=== PATIENT | female | born 1990 | race Two or more races ===

== ENCOUNTER → 2020-05-31 09:43 | Outpatient (BNVA) | payer MEDICAID, SELFPAY | PROVIDERS: Visit Provider Advanced Practice Midwife | DX: Z76.89 Persons encountering health services in other specified circumstances (principal) ==

== ENCOUNTER 2020-05-31 14:09 | Outpatient (REF) | payer MEDICAID, SELFPAY ==
[2020-05-31 18:23] LABS: CT PCR NOT DETECTED (Not Detect.); NG PCR NOT DETECTED (Not Detect.)
[2020-06-01 10:33] LABS: BV Int Neg Control Negative (Negative); BV Int Pos Control Positive (Positive)
== END 2020-05-31 14:10 | disposition home or self-care (01) ==
LOC: HO.LNP 14:09
PROVIDERS: Visit Provider Advanced Practice Midwife
DX: R10.9 Unspecified abdominal pain (principal)
CPT/HCPCS: 87480; 87491; 87510; 87591; 87660

== ENCOUNTER 2022-05-22 10:40 | Outpatient (REF) | payer MEDICAID, SELFPAY ==
--- NOTE | ~2022-05-22 | MM_ITS ---
EXAMINATION: MM DIAGNOSTIC DIGITAL BREAST TOMOSYNTHESIS, BILATERAL US TARGETED BREAST ULTRASOUND, LEFT CLINICAL INFORMATION: Left probable abnormality axilla. The lifetime risk of breast cancer based on the Tyrer-Cuzick Model is 11.4%. COMPARISON: Mammography: None. TECHNIQUE: Digital breast tomosynthesis is performed in both the craniocaudal and mediolateral oblique views along with computer-aided detection (CAD). Synthesized 2-D images are generated from the tomosynthesis. Targeted left breast ultrasound to palpable abnormality. FINDINGS: The breasts are extremely dense, which lowers the sensitivity of mammography (ACR BI-RADS breast composition Category d). There are no significant masses, abnormal calcifications, or other abnormalities. Targeted ultrasound evaluation to palpable abnormality did not demonstrate any abnormal cystic or solid masses. No region of abnormal distal sound shadowing identified. No edematous change within the parenchyma. Results are discussed with the patient at time of visit. MM/MM tomosynthesis diagnostic BI IMPRESSION: No mammographic evidence of malignancy. Clinical followup suggested. ASSESSMENT: BI-RADS 1: Negative. RECOMMENDATION: Routine annual screening at 40 years old. Clinical followup for palpable abnormality.
== END 2022-05-22 10:41 | disposition home or self-care (01) ==
LOC: HO.MAMMO 10:40
PROVIDERS: PCP Registered Nurse; Visit Provider Registered Nurse
DX: N63.32 Unspecified lump in axillary tail of the left breast (principal)
CPT/HCPCS: 76642; 77062; 77066

== ENCOUNTER 2023-04-20 18:55 | Outpatient (REF) | payer MEDICAID, SELFPAY ==
[2023-04-23 04:54] LABS: HPV mRNA E6/E7 rflx Not Detected (Not Detected)
== END 2023-04-20 18:56 | disposition home or self-care (01) ==
LOC: HO.HHCLNP 18:55
PROVIDERS: Visit Provider Advanced Practice Midwife
DX: Z12.4 Encounter for screening for malignant neoplasm of cervix (principal); Z11.51 Encounter for screening for human papillomavirus (HPV)
CPT/HCPCS: 87624; 88142

== ENCOUNTER 2023-06-23 10:26 | Outpatient (REF) | payer MEDICAID, SELFPAY | END 2023-06-23 10:27 | disposition home or self-care (01) | LOC: HO.HHCL 10:26 | PROVIDERS: Visit Provider Registered Nurse | DX: Z13.89 Encounter for screening for other disorder (principal) | CPT/HCPCS: 36415; 86735; 86762; 86765 ==

== ENCOUNTER 2023-06-29 09:02 | Outpatient (REF) | payer MEDICAID, SELFPAY ==
[2023-06-30 06:23] LABS: Rubella IgG Antibody 6.82 Index
== END 2023-06-29 09:03 | disposition home or self-care (01) ==
LOC: HO.HHCL 09:02
PROVIDERS: Visit Provider Registered Nurse
DX: Z01.84 Encounter for antibody response examination (principal); Z78.9 Other specified health status
CPT/HCPCS: 36415; 86735; 86762; 86765

== ENCOUNTER 2024-12-10 14:17 | Outpatient (REF) | payer MEDICAID, SELFPAY ==
--- OUTSIDE RECORDS SUMMARY | 2024-12-10 14:20 | XMS_ITS | Encounter Summary ---
Author Organization [employer] Address [address] [place] [address] Care Team Providers Care Education Administrator Name Role Phone [facility] Primary Care Provider [phone] Reason for Visit * Reason Comments Pre-visit Planning (Unable to reach for PVP screening, LVM) Encounter Details Date Type Department Care Team ([facility] st Contact Info) Description 12/07/2024 Patient Outreach [facility] [address] [place], [place] [phone] [facility] [address] [place], [place] [phone] Pre-visit Planning ((Unable to reach for PVP screening, LVM)) Social History Tobacco Use Types Packs/Day Years Used Date Smoking Tobacco: Never Smokeless Tobacco: Never Alcohol Use Standard Drinks/Week Comments Never 0 (1 standard drink = 0.6 oz pur e alcohol) Depression Answer Date Recorded Patient Health Questionnaire-9 Score 0 02/05/2023 Housing Stability Answer Date Recorded What is your housing situation today? I have jensenjose ledbetter 05/27/[address] you li ve. Do you have problems with any of the following? None of the above 05/27/2023 Food Insecurity Answer Date Recorded Within the past 12 months, y ou worried that your food would run out before you got money to buy more: Never True 05/27/2023 Within the past 12 months,th e food you bought just didn't last and you didn't have enough money to get more: Never True Transportation Answer Date Recorded In the past 12 months, has l ack of transportation kept you from medical appts, meetings, work or from getting things needed for daily living? No 05/27/2023 Utilities Answer Date Recorded In the past 12 months, has t he electric, gas, oil or water company threatened to shut off services in your home? No 05/27/2023 Depression Answer Date Recorded Patient Health Questionnaire-2 Score 0 02/05/2023 Comments No Sex and Gender Information Value Date Recorded Sex Assigned at Female 06/02/2022 10:37 AM EDT Legal Sex Female 10:37 AM EDT Gender Identity Female 06/02/2022 10:37 AM EDT Sexual Orientation Straight 06/02/2022 10 :37 AM EDT documented as of this encounter Progress Notes * Solange Bryan - 12/07/2024 2:20 PM EDT CC Solange. Placed outbound call to patient to complete pre-visit planning. No answer at this time. Patient name and were not confirmed. CC left voicemail requesting return call. Direct contact information provided. documented in this encounter Plan of Treatment Upcoming Encounters Date Type Department Care Team (Late st Contact Info) Description 12/15/2024 2:45 PM EDT Office Visit [facility] [address] [place] [address] Annalee Sanon MD [address] [place] [address] documented as of this encounter Visit Diagnoses Not on filedocumented in this encounter Additional Health Concerns Assessment Noted Time PHQ-9 Depression Total Score: 0 02/06/20 23 10:01 AM EDT documented as of this encounter Care Teams Education Administrator Relationship Specialty Start Date End Date America Kenney FNP [address] [place] [id number] PCP - General Family Medicine 04/02/22 documented as of this encounter
--- OUTSIDE RECORDS SUMMARY | 2024-12-10 14:20 | XMS_ITS | Clinical Summary ---
Author Organization [facility] Address [address] [place] [address] Care Team Providers Care Geologic Technician Name Role Phone Unavailable Primary Care Provider Unavailabl e Social History Tobacco Use Types Packs/Day Years Used Date Smoking Tobacco: Never Assessed Comments Unknown Sex and Gender Information Value Date Recorded Sex Assigned at Not on file Legal Sex Female 8:29 PM EST Gender Identity Not on file Sexual Orientation Not on file Plan of Treatment Health Maintenance Due Date Last Done Comments DTaP,Tdap,and Td Vaccines (1 - Tdap) 2009 Hepatitis B Vaccines (1 of 3 - 19+ 3-dose series) 2009 Cervical Cancer Screening: P ap Smear 2011 Depression Screening 08/28/2023 HIV Screening 08/28/2023 Hepatitis C Screening 08/28/2023 Social Influencers of Health Screening 08/28/2023 COVID-19 Vaccine (2023-2 5 season) 2024 Influenza Vaccine (Season Ended) 2025 HIB Vaccines Aged Out No longer eligi ble based on patient's age to complete this topic HPV Vaccines Aged Out No longer eligi ble based on patient's age to complete this topic Hepatitis A Vaccines Aged Out No long er eligible based on patient's age to complete this topic IPV Vaccines Aged Out No longer eligi ble based on patient's age to complete this topic MMR Vaccines Aged Out No longer eligi ble based on patient's age to complete this topic Meningococcal ACWY Vaccine Aged Out N o longer eligible based on patient's age to complete this topic Meningococcal B Vaccine Aged Out No l onger eligible based on patient's age to complete this topic Pneumococcal Vaccine: Pediat rics (0 to 5 Years) and At-Risk Patients (6 to 64 Years) Aged Out No longer eligible b ased on patient's age to complete this topic RSV Immunization Patients Un vivian 20 months Aged Out No longer eligible b ased on patient's age to complete this topic Varicella Vaccines Aged Out No longer eligible based on patient's age to complete this topic
--- OUTSIDE RECORDS SUMMARY | 2024-12-10 14:20 | XMS_ITS | Clinical Summary ---
Author Organization [employer] Address [address] 7[address] [place] [address] Care Team Providers Care Client Service Manager Name Role Phone America Kenney Primary Care Provider [phone] Allergies No known active allergies Medications valACYclovir (Valtrex) 1 g tabletIndications :Herpes zoster without complication Take 1 tablet (1,000 mg) by mouth 3 times daily for 7 days. 21 tablet 12/10/2024 12/18/19 25 Active Active Problems Problem Noted Date Diagnosed Date Acute cystitis with hematuria 10/20/2022 Assessment & Plan (10/20/2022 1:20 PM EDT): RO kidney stones. Filter urine with a paper towel. Increase water/cranberry juice intake Amoxicillin x 7d Check urine if menstrual delay. Encounters Date Type Department Care Team Description 12/10/2024 11:00 AM EDT Office Visit [facility] [address] [place] [address] Fernie Reynolds MD Herpes zoster without complication (Primary Dx) 12/10/2024 Travel 12/09/2024 Telephone [facility] [address] [place] [address] America Kenney FNP Nurse Triage 12/07/2024 Patient Outreach [address] [address] America Kenney FNP Pre-visit Planning ((Unable to reach for PVP screening, LVM)) 10/26/2024 Telephone [facility] [address] [place] [address] [place], [place], [employer] Lab Orders 10/14/2024 Population Health Risk Score [facility] () Department [address] [place] [phone] Provider, Population Health Generic from Last 3 Months Social History Tobacco Use Types Packs/Day Years Used Date Smoking Tobacco: Never Smokeless Tobacco: Never Tobacco Cessation:Counseling Given: Not Answered Alcohol Use Standard Drinks/Week Comments Never 0 (1 standard drink = 0.6 oz pur e alcohol) Depression Answer Date Recorded Patient Health Questionnaire-9 Score 0 02/05/2023 Housing Stability Answer Date Recorded What is your housing situation today? I have jensen ledbetter 05/27/[address] you [...] Orientation Straight 06/02/2022 10 :37 AM EDT Last Filed Vital Signs Vital Sign Reading Time Taken Comments Blood Pressure 121/70 12/10/2024 10:49 AM EDT Pulse 78 12/10/2024 10:49 AM EDT Temperature 36.6 ??C (97.8 ??F) 12/10/2024 10:49 AM E DT Respiratory Rate 18 12/10/2024 10:49 AM EDT Oxygen Saturation 100% 12/10/2024 10:49 AM EDT Inhaled Oxygen Concentration - - Weight 54.4 kg (120 lb) 12/10/2024 10:49 AM EDT Height 160 cm (5' 3 ) 05/27/2023 1:48 PM EDT Body Mass Index 21.26 05/27/2023 1:48 PM EDT Plan of Treatment Upcoming Encounters Date Type Department Care Team (Late st Contact Info) Description 12/15/2024 2:45 PM EDT Office Visit [facility] [address] [place], [place] [phone] Annalee Sanon MD [address] [place], [place] [phone] Health Maintenance Due Date Last Done Comments HIV Screening 1990 Alcohol/Substance Use Screening 2002 Family Planning (PISQ) 2005 Hepatitis C Screening 2008 Hepatitis B Vaccines (1 of 3 - 19+ 3-dose series) 2009 Depression Screening 02/06/2024 02/05/2023, 02/05/2023 SDOH Screening 02/06/2024 02/05/2023 COVID-19 Vaccine (3 - 2023-2 5 season) 2024 12/20/2020, 11/29/2020 Influenza Vaccine (#1) 2024 05/29/2022 Tobacco Screening 05/27/2024 05/27/2023 DTaP/Tdap/Td Vaccines (2 - T d or Tdap) 09/11/2025 09/11/2015 Pap Smear 04/20/2026 04/20/2023 Cervical Cancer Screening 04/20/2028 HPV/Cotest 04/20/2028 04/20/2023 Zoster Vaccines (1 of 2) 2040 RSV Patients and Patients Aged 60 years or older (1 - 1-dose 75+ series) 2065 HIB Vaccines Aged Out No longer eligi [...] patient's age to complete this topic Meningococcal Vaccine Aged Out No lai chitra eligible based on patient's age to complete this topic Pneumococcal Vaccine: Pediatrics (0 to 5 Years) and At-Risk Patients (6 to 49) Years) Aged Out No longer eligible b ased on patient's age to complete this topic RSV under 20 months Aged Out No longe r eligible based on patient's age to complete this topic Rotavirus Vaccines Aged Out No longer eligible based on patient's age to complete this topic Procedures Procedure Name Priority Date/Time Associated Diagnosis Comments HPV MRNA E6/E7 REFLEX TO HPV 16, 18/45 Routine 04/20/2023 10:54 AM EDT PAP SMEAR Routine 04/20/2023 10:54 AM EDT from Last 3 Months or Most Recently Relevant to Health Maintenance Results * HPV mRNA E6/E7 w/Reflex to HPV Genotypes 16, 18/45 (04/20/2023 10:54 AM EDT) HPV nRNA E6/E7 Not Detected Not Detected [facility] Comment:Methodology: Transcr iption-Mediated AmplificationThis assay detects E6/E7 viral messenger RNA (mRNA) from 14high-risk HPV types (16,18,31,33,35,39,45,51,52,56,58,59,66,68).Cervical sources are required for HPV testing.If a vaginal source from a patient who has had atotal hysterectomy with removal of cervix wassubmitted, please contact the testing laboratoryfor alternative testing options.For additional information, please refer [email or web address](This link if provided for information/educational purposes only.)THIS TEST WAS PERFORMED AT:[facility] [place] [phone] GOODMAN MD HPV mRNA E6/E7 [facility] HPV 16 RNA [facility] HPV 18/45 RNA [facility] 04/20/2023 10:5 4 AM EDT 04/21/2023 8:45 AM EDT Priscila Hall CNM LAB CYTOLOGY ORDERABLES F inal Result [facility] [address] [place] [address] [phone] * Pap Smear (04/20/2023 10:54 AM EDT) 04/20/2023 10:5 4 AM EDT 04/21/2023 8:45 AM EDT Narrative [facility] - 04/28/2023 2:01 PM EDT ----- ------- Name: Dharmesh Justin ?Age/Sex: 33/F ? : 1990 Unit#: [id number] ?? Attend Dr: PRISCILA HALL CNM ?Re04/20/23 ?Status: DEP REF ? Location: [facility] ? Disch: ? ----- ------- SPEC : [id number] ?RECD: 04/21/23 ? STATUS: ??SOUT ? REQ NUM: [id number] ? MADELINE: 04/20/23 ? SUBM DR: PRISCILA HALL CNZonia ? ENTERED: ??04/21/23 ?SP TYPE: Pap Smr ?OTHR DR: ? ORDERED: ??Pap Smear ? Interpretation ?? Satisfactory for evaluation. ?? Negative for intraepithelial lesion or malignancy. ? HPV mRNA E6/E7: ?NOT DETECTED ? This assay detects E6/E7 viral messenger RNA (mRNA) from 14 high-risk HPV types (16, 18, ?? 31, 33, 35, 39, 45, 51, 52, 56, 58, 59, 66, 68) ? HPV testing performed by [facility], [place], [place]. ??See reference laboratory ?? portion of the EMR for entire report. ?Clinical Information LMP: Unknown date Previous PAP test: Unknown date/findings ? Material Received ?? ThinPrep-Cervical ----- ------- Signed (signature on file) Rakel Valencia 04/28/23 1401 ? ----- ------- ? END OF REPORT ? Priscila Hall [facility] CYTOLOGY ORDERABLES F inal Result [facility] [address] [place] [phone] from Last 3 Months or Most Recently Relevant to Health Maintenance Insurance C3 Care Teams Client Service Manager Relationship Specialty Start Date End Date America Kenney FNP [address] [place] [phone] PCP - General Family Medicine 04/02/22
--- OUTSIDE RECORDS SUMMARY | 2024-12-10 14:20 | XMS_ITS | Encounter Summary ---
Author Organization [employer] Address [address] [place] [address] Care Team Providers Care Debone Processing Supervisor Name Role Phone [place] [facility] Primary Care Provider [phone] Reason for Visit * Reason Onset Date Comments Nurse Triage 12/09/2024 Encounter Details Date Type Department Care Team ([facility] st Contact Info) Description 12/09/2024 Telephone [facility] [address] [place], [place] [phone] [facility] [address] [place] [address] Nurse Triage Social History Tobacco Use Types Packs/Day Years [...] AM EDT documented as of this encounter Miscellaneous Notes * Telephone Encounter - Maritza Trevino RN - 12/09/2024 12:11 PM EDT Call returned to Dharmesh Unger to triage below. Reports having localized rash on right side of face since last night. Per pt fluid and pus filled. Per pt area is very itchy and burning. Denies anyfever. Pt having OLIVARES. Denies any ST, ear pain, cough or congestion. No use of any new soaps or lotions on skin. No use of hydrocortisone or diphenhydramine lotion. Pt states had a similar rash a month ago and also had inflammation of lymph node on that side. Pt states had scarring of skin at that time. Pt advised of need to be seen for evaluation. Offered sick on site with blue team. Pt unable to come in due to work. Reviewed [facility] operating hours and that wait times vary. Reviewed home care advise, ER precautions and reasons to call back. Protocol Used: Rash or Redness - Localized (Adult) Protocol-Based Disposition: See in Office or Video Visit Today Video visit offer not recorded Positive Triage Question: * Patient wants to be seen * All higher-acuity triage questions were negative Care Advice Discussed: * Reassurance and Education - Mild Localized Rash * Wash the Area * Cold Pack for Mild Itching or Mild Pain * Don't Scratch * Reasons To Call Back - Rash spreads or becomes worse - You become worse * Telephone Encounter - Maritza Trevino RN - 12/09/2024 9:28 AM EDT Call returned to Dharmesh Unger for triage below. No answer LVM to return call to [facility] triage [phone]. * Telephone Encounter - Genevieve Leal - 12/09/2024 8:46 AM EDT Symptom: Rash or Redness on One Body Area Only (face) Outcome: Schedule an urgent appointment (within 4 hours) or talk to a nurse or provider soon Reason: Fast-spreading redness The caller accepted this outcome. [phone] sinhala documented in this encounter Plan of Treatment Upcoming Encounters Date Type Department Care Team (Late st Contact Info) Description 12/15/2024 2:45 PM EDT Office Visit [facility] [address] [place] [address] Annalee Sanon MD [address] [place] [address] documented as of this encounter Visit Diagnoses Not on filedocumented in this encounter Additional Health Concerns Assessment Noted Time PHQ-9 Depression Total Score: 0 02/06/20 23 10:01 AM EDT documented as of this encounter Care Teams Debone Processing Supervisor Relationship Specialty Start Date End Date [place] FNP [address] [place] [address] PCP - General Family Medicine 04/02/22 documented as of this encounter
--- OUTSIDE RECORDS SUMMARY | 2024-12-10 14:20 | XMS_ITS | Encounter Summary ---
Author Organization [employer] Address [address] [place] [address] Care Team Providers Care Rubber Tire Curer Name Role Phone America Kenney SHOP COORDINATOR Primary Care Provider Encounter Details Date Type Department Care Team (Latest Contact Info) Description 12/10/2024 Travel Social History Tobacco Use Types Packs/Day Years [...] AM EDT documented as of this encounter Plan of Treatment Upcoming Encounters Date Type Department Care Team (Late st Contact Info) Description 12/15/2024 2:45 PM EDT Office Visit [facility] [address] [place] [address] Annalee Sanon MD [address] [place] [address] documented as of this encounter Visit Diagnoses Not on filedocumented in this encounter Additional Health Concerns Assessment Noted Time PHQ-9 Depression Total Score: 0 02/06/20 23 10:01 AM EDT documented as of this encounter Care Teams Rubber Tire Curer Relationship Specialty Start Date End Date mAerica Kenney FNP [address] [place] [address] PCP - General Family Medicine 04/02/22 documented as of this encounter
--- OUTSIDE RECORDS SUMMARY | 2024-12-10 14:20 | XMS_ITS | Encounter Summary ---
Author Organization [employer] Address [address] [place] [address] Care Team Providers Care Kettle Cleaner Name Role Phone America Kenney [employer]BEL CRM DEVELOPER Primary Care Provider [phone] Reason for Visit * Reason Comments Walk-In concern with face re dnkalpana santana pt said last month she had it in the same spot Encounter Details Date Type Department Care Team (Late st Contact Info) Description 12/10/2024 11:00 AM EDT Office Visit [facility] [address] [place], [place] [phone] Fernie Reynolds MD [address] [place], [place] [phone] Herpes zoster without complication (Primary Dx) Social History Tobacco Use Types Packs/Day Years [...] AM EDT documented as of this encounter Last Filed Vital Signs Vital Sign Reading Time Taken Comments Blood Pressure 121/70 12/10/2024 10:49 AM EDT Pulse 78 12/10/2024 10:49 AM EDT Temperature 36.6 ??C (97.8 ??F) 12/10/2024 10:49 AM E DT Respiratory Rate 18 12/10/2024 10:49 AM EDT Oxygen Saturation 100% 12/10/2024 10:49 AM EDT Inhaled Oxygen Concentration - - Weight 54.4 kg (120 lb) 12/10/2024 10:49 AM EDT Height - - Body Mass Index 21.26 05/27/2023 1:48 PM EDT documented in this encounter Progress Notes * Fernie Reynolds MD - 12/10/2024 11:00 AM EDT Images from the original note were not included. Subjective History was provided by the patient. Dharmesh Unger is a 34 y.o. female who presents for evaluation of facial rash for 3 days. Blisterfilled bumps on the right cheek area. Reports the area is painful. Had similar presentation 3 months ago, but spontaneously resolved after 2 weeks. Denies F/C. Denies cough, congestion, or rhinorrhea. Objective Vitals: 12/10/24 1049 BP: 121/70 BP Location: Right arm Patient Position: Sitting BP Cuff Size: Adult Pulse: 78 Resp: 18 Temp: 97.8 ??F (36.6 ??C) TempSrc: Oral SpO2: 100% Weight: 120 lb (54.4 kg) Physical Exam Vitals reviewed. Constitutional: Appearance: Normal appearance. HENT: Head: Normocephalic and atraumatic. Right Ear: External ear normal. Left Ear: External ear normal. Nose: Nose normal. Mouth/Throat: Mouth: Mucous membranes are moist. Pharynx: Oropharynx is clear. Eyes: Extraocular Movements: Extraocular movements intact. Conjunctiva/sclera: Conjunctivae normal. Pulmonary: Effort: Pulmonary effort is normal. Musculoskeletal: General: Normal range of motion. Cervical back: Neck supple. Skin: General: Skin is warm and dry. Findings: Rash ([place] of vesicles on the right cheek area (maxillary division trigeminal nerveV2)) present. Neurological: General: No focal deficit present. Mental Status: She is alert and oriented to person, place, and time. Psychiatric: Mood and Affect: Mood normal. Behavior: Behavior normal. Dharmesh was seen today for walk-in. Diagnoses and all orders for this visit: Herpes zoster without complication (Primary) - valACYclovir (Valtrex) 1 g tablet; Take 1 tablet (1,000 mg) by mouth 3 times daily for 7 days. - Varicella-Zoster Virus, Rapid Method, Culture; Future Patient presents to [facility] due to painful facial rash for 3 days Suspect shingles lesions Given ~72 hours since presentation, will treat with Valacyclovir 1 gram PO TID for 7 days Send out VZV Culture for confirmation Rash in the distribution of maxillary division trigeminal nerve (V2) Wound care discussed Advised to cover the area outside until lesions crust over Potential adverse effects of the medication reviewed Advised to contact the clinic if persistent or worsening symptoms Indications for UC/ER use reviewed documented in this encounter Plan of Treatment Upcoming Encounters Date Type Department Care Team (Late st Contact Info) Description 12/15/2024 2:45 PM EDT Office Visit [facility] [address] [place] [address] Annalee Sanon MD [address] [place] [address] Scheduled Orders Name Type Priority Associated Diagnoses Orde r Schedule Varicella-Zoster Virus, Rapid Method,??Culture Lab Routine Herpes zoster without complication Expected: 12/10/2024 (Approximate), Expires: 12/10/2025 documented as of this encounter Visit Diagnoses Diagnosis Herpes zoster without complication- Primary documented in this encounter Additional Health Concerns Assessment Noted Time PHQ-9 Depression Total Score: 0 02/06/20 23 10:01 AM EDT documented as of this encounter Care Teams Kettle Cleaner Relationship Specialty Start Date End Date America Kenney FNP [address] [place] [phone] PCP - General Family Medicine 04/02/22 documented as of this encounter
[2024-12-16 09:18] LABS: Varicella Zoster Source RIGHT CHEEK
== END 2024-12-10 14:18 | disposition home or self-care (01) ==
LOC: HO.HHCLNP 14:17
PROVIDERS: Visit Provider Family Medicine
DX: B02.9 Zoster without complications (principal)
CPT/HCPCS: 36415; 87254

== ENCOUNTER 2025-03-14 13:27 | Outpatient (REF) | payer MEDICAID, SELFPAY ==
--- OUTSIDE RECORDS SUMMARY | 2025-03-14 14:16 | XMS_ITS | Clinical Summary ---
Author Organization [facility] Address [address] [place] [address] Care Team Providers Care Moving Consultant Name Role Phone Unavailable Primary Care Provider [...] Cervical Cancer Screening: P ap Smear 2011 HIV Screening 08/28/2023 Hepatitis C Screening 08/28/2023 Social Influencers of Health Screening 08/28/2023 COVID-19 Vaccine ( - 2023-2 5 season) 2024 Depression Screening 08/03/2024 Influenza Vaccine (#1) 2025 HIB Vaccines Aged Out No longer [...] 5 Years) and At-Risk Patients (6 to 49 Years) Aged Out No longer eligible b ased on patient's age to complete this topic RSV Immunization Patients Un vivian 20 months Aged Out No longer eligible b ased on patient's age to complete this topic Varicella Vaccines Aged Out No longer eligible based on patient's age to complete this topic
--- OUTSIDE RECORDS SUMMARY | 2025-03-14 14:16 | XMS_ITS | Encounter Summary ---
Author Organization [employer] Address [address] [place] [address] Care Team Providers Care Bodily Injury Adjuster Name Role Phone America Kenney DIRECT SELLING COUNSELOR Primary Care Provider [phone] Encounter Details Date Type Department Care Team ([facility] st Contact Info) Description 03/13/2025 Telephone [facility] [address] [place] [address] [place], [place] Social History Tobacco Use Types Packs/Day Years Used Date Smoking Tobacco: Never Passive Smoke Exposure: Never Smokeless Tobacco: Never Alcohol Use Standard Drinks/Week Comments Never 0 (1 standard drink = 0.6 oz pur e alcohol) Depression Answer Date Recorded Patient Health Questionnaire-9 Score 0 12/15/2024 Patient Health Questionnaire-9 Score 0 12/15/2024 Last PHQ-9: Questionnaire Data Not on file 0 12/15/2024 Housing Stability Answer Date Recorded What is your housing situation today? I have jensen ledbetter 12/15/[address] you li ve. Do you have problems with any of the following? None of the above 12/15/2024 Food Insecurity Answer Date Recorded Within the past 12 months, y ou worried that your food would run out before you got money to buy more: Never True 12/15/2024 Within the past 12 months,th e food you bought just didn't last and you didn't have enough money to get more: Never True Transportation Answer Date Recorded In the past 12 months, has l ack of transportation kept you from medical appts, meetings, work or from getting things needed for daily living? No 12/15/2024 Utilities Answer Date Recorded In the past 12 months, has t he electric, gas, oil or water company threatened to shut off services in your home? No 12/15/2024 Depression Answer Date Recorded Patient Health Questionnaire-2 Score 0 12/15/2024 Internet Access Answer Date Recorded Internet Access Q1 No 12/15/2024 Internet Access Q2 I do not want or need it 12/01 Comments No Sex and Gender Information Value Date Recorded Sex Assigned at Female 06/02/2022 10:37 AM EDT Legal Sex Female 10:37 AM EDT Gender Identity Female 06/02/2022 10:37 AM EDT Sexual Orientation Straight 06/02/2022 10 :37 AM EDT documented as of this encounter Miscellaneous Notes * Telephone Encounter - Maggie Pringle MA - 03/13/2025 4:04 PM EDT Chart Prep Labs: done Images: not applicable Referrals: unable to check status Vaccines due: Covid, Hep B, and HPV Screenings: HIV Overdue care gaps: SBIRT documented in this encounter Plan of Treatment Upcoming Encounters Date Type Department Care Team (Late st Contact Info) Description 05/03/2025 3:30 PM EDT Office Visit [facility] [address] [place] [address] TarDomenica mejia, OD [address] [place] [address] documented as of this encounter Visit Diagnoses Not on filedocumented in this encounter Additional Health Concerns Assessment Noted Time PHQ-9 Depression Total Score: 0 12/16/19 25 2:35 PM EDT documented as of this encounter Care Teams Bodily Injury Adjuster Relationship Specialty Start Date End Date America Kenney FNP [address] [place] [address] PCP - General Family Medicine 04/02/22 documented as of this encounter
[2025-03-14 17:47] LABS: Hematocrit 35.7 % (37.0-47.0); Hemoglobin 11.8 g/dl (12.0-16.0); Mean Corpuscular HGB Conc 33.1 g/dl (31.0-35.0); Mean Corpuscular Hemoglobin 30.1 pg (27.0-33.0); Mean Corpuscular Volume 91.1 fL (80.0-98.0); NRBC Abs Auto 0.000 X10*3/uL (0.0-0.012); NRBC Pct Auto 0.0 /100WBC (0.0-0.2); Platelet Count 171 X10*3/uL (160-400); Red Blood Count 3.92 X10*6/uL (4.20-5.50); White Blood Count 5.0 X10*3/uL (4.8-10.8)
== END 2025-03-14 13:28 | disposition home or self-care (01) ==
LOC: HO.HHCL 13:27
PROVIDERS: PCP Registered Nurse; Visit Provider Advanced Practice Midwife
DX: N92.0 Excessive and frequent menstruation with regular cycle (principal)
CPT/HCPCS: 36415; 84443; 85027

== ENCOUNTER 2025-03-30 14:21 | Outpatient (REF) | payer MEDICAID, SELFPAY ==
--- NOTE | ~2025-03-30 | US_ITS ---
EXAMINATION: US PELVIS TRANSABDOMINAL AND TRANSVAGINAL HISTORY: dysmenorrhea COMPARISON: There are no prior studies available for comparison. TECHNIQUE: Transabdominal and endovaginal real-time 2D gay-scale ultrasound was performed. FINDINGS: Uterus: The uterus is normal in size, measuring 8.9 x 3.9 x 4.8 cm. Myometrium has a normal echotexture. No fibroids are identified. Endometrium: The endometrial stripe measures 12 mm in thickness. There is a small amount fluid in the endometrial canal. There are nabothian cysts in the cervix. Right ovary: The right ovary measures 4.3 x 2.0 x 2.2 cm. There is a complex right ovarian cyst containing internal debris measuring 1.3 x 1.5 x 1.5 cm. Left ovary: The left ovary measures 3.3 x 1.3 x 1.8 cm. The left ovary is normal in size and echotexture. Pelvic fluid: There is a small amount of fluid in the cul-de-sac. US/US pelvic and transvaginal IMPRESSION: 1. Thickened endometrial stripe containing a small amount of fluid. 2. 1.3 x 1.5 x 1.5 cm complex right ovarian cyst. Follow-up is recommended in 6 weeks, at a different time in the patient's menstrual cycle, to document resolution. Electronically signed by: Unruly Macdonald MD 03/30/2025 03:07 PM EDT
--- OUTSIDE RECORDS SUMMARY | 2025-03-30 15:08 | XMS_ITS | Clinical Summary ---
Author Organization [facility] Address [address] [place] [address] Care Team Providers Care Mountain Bike Guide Name Role Phone Unavailable Primary Care Provider [...]
--- OUTSIDE RECORDS SUMMARY | 2025-03-30 15:08 | XMS_ITS | Clinical Summary ---
Author Organization [employer] Address [address] [place] [address] Care Team Providers Care Configuration Management Specialist Name Role Phone America Kenney Primary Care Provider [phone] Allergies No known active allergies Medications Vit-Fe Fumarate-FA ( Plus) 27-1 MG tablet One tablet by mouth daily 30 tablet 11 03/14/2025 Active Active Problems Problem Noted Date Diagnosed Date Diminished vision 12/15/2024 Nevus 12/15/2024 Discoloration of skin of face 12/15/2024 Encounter for preventive care 12/15/2024 Assessment & Plan (12/15/2024 2:48 PM EDT): See HPI Acute cystitis with hematuria 10/20/2022 Assessment & Plan (10/20/2022 1:20 PM EDT): RO kidney stones. Filter urine with a paper towel. Increase water/cranberry juice intake Amoxicillin x 7d Check urine if menstrual delay. Encounters Date Type Department Care Team Description 03/15/2025 Results Follow-Up [facility] [address] [place], [place] [phone] Juaquin Hall CNM TSH W/Reflex to FT4, CBC 03/14/2025 1:00 PM EDT Office Visit [facility] [address] [place] [address] Juaquin Hall CNM Menorrhagia with regular cycle; Dysmenorrhea; Procreative management 03/14/2025 Travel 03/13/2025 Telephone [facility] [address], [place] [phone] Maggie Pringle MA from Last 3 Months Social History Tobacco Use Types Packs/Day Years Used Date Smoking Tobacco: Never Passive Smoke Exposure: Never Smokeless Tobacco: Never Tobacco Cessation:Counseling Given: [...] want or need it 12/01 Comments No Intention Date Recorded Wants to become (finding) 03/14 Sex and Gender Information Value Date Recorded Sex Assigned at Female 06/02/2022 10:37 AM EDT Legal Sex Female 10:37 AM EDT Gender Identity Female 06/02/2022 10:37 AM EDT Sexual Orientation Straight 06/02/2022 10 :37 AM EDT Last Filed Vital Signs Vital Sign Reading Time Taken Comments Blood Pressure 110/78 03/14/2025 1:03 PM EDT Pulse 73 03/14/2025 1:03 PM EDT Temperature 37.3 C (99.2 F) 03/14/2025 1:03 PM EDT Respiratory Rate 14 03/14/2025 1:03 PM EDT Oxygen Saturation 100% 03/14/2025 1:03 PM EDT Inhaled Oxygen Concentration - - Weight 55.3 kg (122 lb) 03/14/2025 1:03 PM EDT Height 165.1 cm (5' 5 ) 12/15/2024 2:33 PM EDT Body Mass Index 20.3 12/15/2024 2:33 PM EDT Plan of Treatment Upcoming Encounters Date Type Department Care Team (Late st Contact Info) Description 05/03/2025 3:30 PM EDT Office Visit [facility] [address] [place], [place] [phone] Domenica Gutierrez, OD [address] [place] [address] Health Maintenance Due Date Last Done Comments HIV Screening 1990 HPV Vaccines (1 - 3-dose series) 2005 Hepatitis C Screening 2008 Hepatitis B Vaccines (1 of 3 - 19+ 3-dose series) 2009 COVID-19 Vaccine (3 - 2023-2 5 season) 2024 12/20/2020, 11/29/2020 Influenza Vaccine (#1) 2025 05/29/2022 DTaP/Tdap/Td Vaccines (2 - T d or Tdap) 09/11/2025 09/11/2015 Depression Screening 12/15/2025 12/15/2024, 12/15/2024 Disability Screening 12/15/2025 12/15/2024 SDOH Screening 12/15/2025 12/15/2024 Alcohol/Substance Use Screening 03/14/2026 03/14/2025 Family Planning (PISQ) 03/14/2026 03/14/2025 Tobacco Screening 03/14/2026 03/14/2025 Cervical Cancer Screening 04/20/2028 HPV/Cotest 04/20/2028 04/20/2023 Pap Smear 04/20/2028 04/20/2023 Zoster Vaccines (1 of 2) [...] Years) and At-Risk Patients (6 to 49) Years Aged Out No longer eligible b ased on patient's age to complete this topic RSV under 20 months Aged Out No longe r eligible based on patient's age to complete this topic Rotavirus Vaccines Aged Out No longer eligible based on patient's age to complete this topic Procedures Procedure Name Priority Date/Time Associated Diagnosis Comments CBC Routine 03/14/2025 1:31 PM EDT Menorrhagia with regular cycle TSH W/REFLEX TO FT4 Routine 03/14/2025 1 :31 PM EDT Menorrhagia with regular cycle HPV MRNA E6/E7 REFLEX TO HPV 16, 18/45 Routine 04/20/2023 10:54 AM EDT PAP SMEAR Routine 04/20/2023 10:54 AM EDT from Last 3 Months or Most Recently Relevant to Health Maintenance Results * TSH W/Reflex to FT4 (03/14/2025 1:31 PM EDT) TSH reflex Free T4 1.40 0.32 - 4.0 uIU/mL [facility] Blood Venous blood specimen / Unknown 03/14/2025 1:31 PM EDT 03/14/2025 5:40 PM EDT Juaquin Montillaliz [facility] BLOOD ORDERABLES Nneka l Result Performing Organization Address City/[facility]/ZIP Co de Phone Number [facility] [address] [place] [address] [phone] * (ABNORMAL) CBC (03/14/2025 1:31 PM EDT) White Blood Count 5.0 4.8 - 10.8 X10*3/uL [facility] Red Blood Count 3.92(L) 4.20 - 5.50 X10*6/uL [facility] Hemoglobin 11.8(L) 12.0 - 16.0 g/dl [facility] Hematocrit 35.7(L) 37.0 - 47.0 % [facility] Mean Corpuscular Volume 91.1 80.0 - 98.0 fL [facility] Mean Corpuscular Hemoglobin 30.1 27.0 - 33.0 pg [facility] Mean Corpuscular HGB Conc 33.1 31.0 - 35.0 g/dl [facility] Red Cell Distribution Width 12.8 11.0 - 16.0 % [facility] Platelet Count 171 160 - 400 X10*3/uL [facility] Mean Platelet Volume 10.3 9.4 - 12.3 fL [facility] NRBC Pct Auto 0.0 0.0 - 0.2 /100WBC [facility] NRBC Abs Auto 0.000 0.0 - 0.012 X10*3/uL [facility] Blood Venous blood specimen / Unknown 03/14/2025 1:31 PM EDT 03/14/2025 5:40 PM EDT Juaquin Farnsworthkatherine [facility] BLOOD ORDERABLES Nneka l Result Performing Organization Address City/[facility]/ZIP Co de Phone Number [facility] [address] [place] [phone] * HPV mRNA E6/E7 w/Reflex to HPV Genotypes 16, 18/45 (04/20/2023 10:54 AM EDT) HPV nRNA E6/E7 Not Detected Not Detected [facility] Comment:Methodology: Transcr iption-Mediated AmplificationThis assay detects E6/E7 viral messenger RNA (mRNA) from 14high-risk HPV types (16,18,31,33,35,39,45,51,52,56,58,59,66,68).Cervical sources are required for HPV testing.If a vaginal source from a patient who has had atotal hysterectomy with removal of cervix wassubmitted, please contact the testing laboratoryfor alternative testing options.For additional information, please refer [email or web address](This link if provided for information/educational purposes only.)THIS TEST WAS PERFORMED AT:[facility] [place] [phone] GOODMAN MD HPV mRNA E6/E7 [facility] HPV 16 RNA [facility] HPV 18/45 RNA [facility] 04/20/2023 10:5 4 AM EDT 04/21/2023 8:45 AM EDT Juaquin Hall [facility] CYTOLOGY ORDERABLES F inal Result [facility] [address] [place] [phone] * Pap Smear (04/20/2023 10:54 AM EDT) 04/20/2023 10:5 4 AM EDT 04/21/2023 8:45 AM EDT Narrative [facility] - 04/28/2023 2:01 PM EDT ----- ------- Name: Dharmesh Justin Age/Sex: 33/F : 1990 [facility]#: [id number] Unit#: [id number] Attend Dr: JUAQUIN HALL [facility] Re04/20/23 Status: [facility] Disch: ----- ------- SPEC : [id number] RECD: 04/21/23 STATUS: ZENON VILLANUEVA NUM: [id number] MADELINE: 04/20/23-[address] [facility] [address]: JUAQUIN HALL [facility] ENTERED: 04/21/23 SP TYPE: Pap Smr OT DR: ORDERED: Pap Smear Interpretation Satisfactory for evaluation. Negative for intraepithelial lesion or malignancy. HPV mRNA E6/E7: NOT DETECTED This assay detects E6/E7 viral messenger RNA (mRNA) from 14 high-risk HPV types (16, 18, 31, 33, 35, 39, 45, 51, 52, 56, 58, 59, 66, 68) HPV testing performed by [facility], [place], [place]. See reference laboratory portion of the EMR for entire report. Clinical Information LMP: Unknown date Previous PAP test: Unknown date/findings Material Received ThinPrep-Cervical ----- ------- Signed (signature on file) Rakel Valencia 04/28/23 1401 ----- ------- END OF REPORT us Juaquin Hall [facility] CYTOLOGY ORDERABLES F inal Result [facility] [address] [place] [address] [phone] from Last 3 Months or Most Recently Relevant to Health Maintenance Insurance C3 Care Teams Configuration Management Specialist Relationship Specialty Start Date End Date America Kenney FNP [address] [place] [phone] PCP - General Family Medicine 04/02/22
== END 2025-03-30 14:22 | disposition home or self-care (01) ==
LOC: HO.US 14:21
PROVIDERS: PCP Registered Nurse; Visit Provider Advanced Practice Midwife
DX: N83.201 Unspecified ovarian cyst, right side (principal); N92.0 Excessive and frequent menstruation with regular cycle; N94.6 Dysmenorrhea, unspecified; R93.89 Abnormal findings on diagnostic imaging of other specified body structures
CPT/HCPCS: 76830; 76856

== ENCOUNTER → 2025-03-30 14:22 | Outpatient (BNV) | payer MEDICAID, SELFPAY | PROVIDERS: PCP Registered Nurse; Visit Provider Radiology Diagnostic Radiology | DX: N83.291 Other ovarian cyst, right side (principal) | CPT/HCPCS: 76830; 76856 ==

== ENCOUNTER 2025-06-08 15:56 | Outpatient (REF) | payer MEDICAID, SELFPAY ==
--- NOTE | ~2025-06-08 | US_ITS ---
EXAMINATION: US PELVIS CLINICAL INFORMATION: Follow-up right ovarian cyst and endometrial stripe COMPARISON: Ultrasound 03/30/2025 TECHNIQUE: Ultrasound of the pelvis is performed using both transabdominal and transvaginal transducers along with Doppler. Transvaginal imaging is performed due to inadequate visualization transabdominally. FINDINGS: LMP: 06/02/2025 Uterus: The uterus is retroverted and retroflexed and measures 7.1 x 3.7 x 4.8 cm. No focal uterine lesions Endometrium: Endometrial stripe measures 7 mm in thickness. The uterus is smooth in contour and has normal myometrial echogenicity. No visible fibroid. Adnexa: Right ovary measures 2.5 x 1.4 x 1.3 cm. Volume 2.4 mL. Simple appearing cyst/follicles seen in the right ovary. Previously seen complex cyst is not visualized. Left ovary measures 3.2 x 1.6 x 2 cm. Volume 5.4 mL. Multiple follicles seen. Small amount of free fluid in the cul-de-sac.. US/US pelvic and transvaginal IMPRESSION: Pelvic ultrasound is within normal limits. Previously seen right ovarian complex cyst is not visualized in today's study. Electronically signed by: Edison Matthews MD 06/09/2025 09:31 AM EST
--- OUTSIDE RECORDS SUMMARY | 2025-06-08 18:32 | XMS_ITS | Clinical Summary ---
Author Organization [employer] Address [address] [facility] 7 [place] [address] Care Team Providers Care Gas Technician Name Role Phone America Kenney Primary Care Provider [phone] Allergies No known active allergies Medications Vit-Fe Fumarate-FA ( Plus) 27-1 MG tablet One tablet by mouth daily 30 tablet 11 03/14/2025 Active Active Problems Problem Noted Date Diagnosed Date Nevus 12/15/2024 Discoloration of skin of face 12/15/2024 Encounter for preventive care 12/15/2024 Assessment & Plan (12/15/2024 2:48 PM EDT): See HPI Acute cystitis with hematuria 10/20/2022 Assessment & Plan (10/20/2022 1:20 PM EDT): RO kidney stones. Filter urine with a paper towel. Increase water/cranberry juice intake Amoxicillin x 7d Check urine if menstrual delay. Encounters Date Type Department Care Team Description 05/31/2025 9:30 AM EDT Office Visit [facility] [address] [place] [address] Amarjit, Alysha, OD Myopia, bilateral (Primary Dx) 05/31/2025 Travel 05/03/2025 3:30 PM EDT Office Visit [facility] [address] [place], [place] [id number] Tarka, Domenica, OD Myopia, bilateral (Primary Dx); Choroidal nevus of left eye 05/03/2025 Travel 03/15/2025 Results Follow-Up [facility] [address] [place] [address] Juaquin Hall CNM TSH W/Reflex to FT4, CBC, US Pelvis Transvaginal 03/14/2025 1:00 PM EDT Office Visit [facility] [address] [place] [address] Juaquin Hall CNM Menorrhagia with regular cycle; Dysmenorrhea; Procreative management 03/14/2025 Travel 03/13/2025 Telephone [facility] [address] [place], [place] [phone] Maggie Pringle MA from Last 3 Months [...] 12/15/2024 2:33 PM EDT Plan of Treatment Health Maintenance Due Date Last Done Comments HIV Screening 1990 HPV Vaccines (1 - 3-dose series) 2005 Hepatitis C Screening 2008 Hepatitis B Vaccines (1 of 3 - 19+ 3-dose series) 2009 COVID-19 Vaccine ( - 2024-2 6 season) 2025 12/20/2020, 11/29/2020 Influenza Vaccine (#1) 2025 05/29/2022 DTaP/Tdap/Td Vaccines (2 - T d or Tdap) 09/11/2025 09/11/2015 Depression Screening 12/15/2025 12/15/2024, 12/15/2024 Disability Screening 12/15/2025 12/15/2024 SDOH Screening 12/15/2025 12/15/2024 Alcohol/Substance Use Screening 03/14/2026 03/14/2025 Family Planning (PISQ) 03/14/2026 03/14/2025 Tobacco Screening 05/03/2026 05/03/2025 Cervical Cancer Screening 04/20/2028 HPV/Cotest 04/20/2028 04/20/2023 [...] Procedure Name Priority Date/Time Associated Diagnosis Comments US PELVIS TRANSVAGINAL Urgent 03/30/2025 2:39 PM EDT Menorrhagia with regular cycle Dysmenorrhea CBC Routine 03/14/2025 1:31 PM EDT Menorrhagia with regular cycle TSH W/REFLEX TO FT4 Routine 03/14/2025 1 :31 PM EDT Menorrhagia with regular cycle HPV MRNA E6/E7 REFLEX TO HPV 16, 18/45 Routine 04/20/2023 10:54 AM EDT PAP SMEAR Routine 04/20/2023 10:54 AM EDT from Last 3 Months or Most Recently Relevant to Health Maintenance Results * US Pelvis Transvaginal (03/30/2025 2:39 PM EDT) Anatomical Region Laterality Modality Pelvis Ultrasound 03/30/2025 2:39 PM EDT Narrative 03/30/2025 3:10 PM EDT [address] [address] Ultrasound Report Signed Patient: Dharmesh Justin MR#: [id number] : 1990 Acct:[id number] Age/Sex: 35 / F ADM Date: 03/30/25 Loc: HO.US Attending Dr: Juaquin Hall CNM Ordering Physician: JUAQUIN HALL CNM Date of Service: 03/30/25 Procedure(s): US pelvic and transvaginal Accession Number(s): [id number] cc: JUAQUIN HALL CNM; [facility] EXAMINATION: US PELVIS TRANSABDOMINAL AND TRANSVAGINAL HISTORY: dysmenorrhea COMPARISON: There are no prior studies available for comparison. TECHNIQUE: Transabdominal and endovaginal real-time 2D gay-scale ultrasound was performed. FINDINGS: Uterus: The uterus is normal in size, measuring 8.9 x 3.9 x 4.8 cm. Myometrium has a normal echotexture. No fibroids are identified. Endometrium: The endometrial stripe measures 12 mm in thickness. There is a small amount fluid in the endometrial canal. There are nabothian cysts in the cervix. Right ovary: The right ovary measures 4.3 x 2.0 x 2.2 cm. There is a complex right ovarian cyst containing internal debris measuring 1.3 x 1.5 x 1.5 cm. Left ovary: The left ovary measures 3.3 x 1.3 x 1.8 cm. The left ovary is normal in size and echotexture. Pelvic fluid: There is a small amount of fluid in the cul-de-sac. US/US pelvic and transvaginal IMPRESSION: 1. Thickened endometrial stripe containing a small amount of fluid. 2. 1.3 x 1.5 x 1.5 cm complex right ovarian cyst. Follow-up is recommended in 6 weeks, at a different time in the patient's menstrual cycle, to document resolution. Electronically signed by: Unruly Macdonald MD 03/30/2025 03:07 PM EDT RP Dictated By: Unruly Macdonald MD Signed By: <Electronically signed by Unruly Macdonald MD in OV> 03/30/25 1507 DD/ 1439 TD/TT: 03/30/25 1451 Aerial Crop Duster: Procedure Note Donotuseinterpreter, Image - 03/30/[address] [address] Ultrasound Report Signed Patient: Alan JustinidyMR#: [id number] : 1990Acct:[id number] Age/Sex: 35 / FADM Date: 03/30/25 Loc: HO.US Attending Dr: Juaquin Hall CNM Ordering Physician: JUAQUIN HALL CNM Date of Service: 03/30/25 Procedure(s): US pelvic and transvaginal Accession Number(s): [id number] cc: JUAQUIN HALL CNM; [facility] EXAMINATION: US PELVIS TRANSABDOMINAL AND TRANSVAGINAL HISTORY: dysmenorrhea COMPARISON: There are no prior studies available for comparison. TECHNIQUE: Transabdominal and endovaginal real-time 2D gay-scale ultrasound was performed. FINDINGS: Uterus: The uterus is normal in size, measuring 8.9 x 3.9 x 4.8 cm. Myometrium has a normal echotexture. No fibroids are identified. Endometrium: The endometrial stripe measures 12 mm in thickness. There is a small amount fluid in the endometrial canal. There are nabothian cysts in the cervix. Right ovary: The right ovary measures 4.3 x 2.0 x 2.2 cm. There is a complex right ovarian cyst containing internal debris measuring 1.3 x 1.5 x 1.5 cm. Left ovary: The left ovary measures 3.3 x 1.3 x 1.8 cm. The left ovary is normal in size and echotexture. Pelvic fluid: There is a small amount of fluid in the cul-de-sac. US/US pelvic and transvaginal IMPRESSION: 1. Thickened endometrial stripe containing a small amount of fluid. 2. 1.3 x 1.5 x 1.5 cm complex right ovarian cyst. Follow-up is recommended in 6 weeks, at a different time in the patient's menstrual cycle, to document resolution. Electronically signed by: Unruly Macdonald MD 03/30/2025 03:07 PM EDT Dictated By: Unruly Macdonald MD Signed By: <Electronically signed by Unruly Macdonald MD in OV> 03/30/25 1507 DD/ 1439 TD/TT: 03/30/25 1451 Aerial Crop Duster: Juaquin Hall CNM IMG US PROCEDURES Final R esult * TSH W/Reflex to FT4 (03/14/2025 1:31 PM EDT) Pathologist [facility] TSH reflex Free T4 1.40 0.32 - 4.0 uIU/mL [facility] Blood Venous blood specimen / Unknown 03/14/2025 1:31 PM EDT 03/14/2025 5:40 PM EDT Juaquin Hall CNM LAB BLOOD ORDERABLES Nneka l Result [facility] [address] [place] [phone] * (ABNORMAL) CBC (03/14/2025 1:31 PM EDT) White Blood Count 5.0 4.8 - 10.8 X10*3/uL [facility] Red Blood Count 3.92(L) 4.20 - 5.50 X10*6/uL [facility] Hemoglobin 11.8(L) 12.0 - 16.0 g/dl [facility] Hematocrit 35.7(L) 37.0 - 47.0 % [facility] Mean Corpuscular Volume 91.1 80.0 - 98.0 fL [facility] Mean Corpuscular Hemoglobin 30.1 27.0 - 33.0 pg [facility] Mean Corpuscular HGB Conc 33.1 31.0 - 35.0 g/dl [facility] Red Cell Distribution Width 12.8 11.0 - 16.0 % [facility] Platelet Count 171 160 - 400 X10*3/uL [facility] Mean Platelet Volume 10.3 9.4 - 12.3 fL [facility] NRBC Pct Auto 0.0 0.0 - 0.2 /100WBC [facility] NRBC Abs Auto 0.000 0.0 - 0.012 X10*3/uL [facility] Blood Venous blood specimen / Unknown 03/14/2025 1:31 PM EDT 03/14/2025 5:40 PM EDT us Juaquin Hall [facility] BLOOD ORDERABLES Nneka ramirez Result [facility] [address] [place] [phone] * HPV mRNA E6/E7 w/Reflex to HPV Genotypes 16, 18/45 (04/20/2023 10:54 AM EDT) HPV nRNA E6/E7 Not Detected Not Detected [facility] Comment:Methodology: Transcr iption-Mediated AmplificationThis assay detects E6/E7 viral messenger RNA (mRNA) from 14high-risk HPV types (16,18,31,33,35,39,45,51,52,56,58,59,66,68).Cervical sources are required for HPV testing.If a vaginal source from a patient who has had atotal hysterectomy with removal of cervix wassubmitted, please contact the testing laboratoryfor alternative testing options.For additional information, please refer [email or web address]/BKE392r3(This link if provided for information/educational purposes only.)THIS TEST WAS PERFORMED AT:[facility] [place] [phone] GOODMAN MD HPV mRNA E6/E7 TNP [facility] HPV 16 RNA TNP [facility] HPV 18/45 RNA TNP [facility] 04/20/2023 10:5 4 AM EDT 04/21/2023 8:45 AM EDT us Juaquin Hall [facility] CYTOLOGY ORDERABLES F inal Result [facility] [address] [place] [phone] * Pap Smear (04/20/2023 10:54 AM EDT) 04/20/2023 10:5 4 AM EDT 04/21/2023 8:45 AM EDT Narrative [facility] - 04/28/2023 2:01 PM EDT ----- ------- Name: Dharmesh Justin Age/Sex: 33/F : 1990 Unit#: [id number] Attend Dr: JUAQUIN HALL CNM Re04/20/23 Status: DEP REF Location: [facility] Disch: ----- ------- SPEC : [id number] RECD: 04/21/23 STATUS: ZENON VILLANUEVA NUM: [id number] MADELINE: 04/20/23-[address] [facility] [address]: JUAQUIN HALL CNM ENTERED: 04/21/23 SP TYPE: Pap Smr OTHR DR: ORDERED: Pap Smear Interpretation Satisfactory for evaluation. Negative for intraepithelial lesion or malignancy. HPV mRNA E6/E7: NOT DETECTED This assay detects E6/E7 viral messenger RNA (mRNA) from 14 high-risk HPV types (16, 18, 31, 33, 35, 39, 45, 51, 52, 56, 58, 59, 66, 68) HPV testing performed by [facility] [facility], [place], [place]. See reference laboratory portion of the EMR for entire report. Clinical Information LMP: Unknown date Previous PAP test: Unknown date/findings Material Received ThinPrep-Cervical ----- ------- Signed (signature on file) Rakel Braun Erik 04/28/23 1401 ----- ------- END OF REPORT Juaquin Hall CNM LAB CYTOLOGY ORDERABLES F inal Result [facility] [address] [place] [phone] from Last 3 Months or Most Recently Relevant to Health Maintenance [place] [address] [address] C3 Care Teams Gas Technician Relationship Specialty Start Date End Date America Kenney FNP [address] [place] [phone] PCP - General Family Medicine 04/02/22
--- OUTSIDE RECORDS SUMMARY | 2025-06-08 18:32 | XMS_ITS | Clinical Summary ---
Author Organization [facility] Address [address] [place] [address] Care Team Providers Care Social Science Research Assistant Name Role Phone Unavailable Primary Care Provider [...] Cervical Cancer Screening: P ap Smear 2011 HPV Vaccines (1 - 3-dose SCD M series) 2017 HIV Screening 08/28/2023 Hepatitis C Screening 08/28/2023 Social Influencers of Health Screening 08/28/2023 Depression Screening 08/03/2024 COVID-19 Vaccine (1 - 2023-2 5 season) 2025 Influenza Vaccine (#1) 2025 RSV Immunization Adult Patie nts (1 - 1-dose 75+ series) 2065 HIB [...]
== END 2025-06-08 15:57 | disposition home or self-care (01) ==
LOC: HO.US 15:56
PROVIDERS: PCP Registered Nurse; Visit Provider Family Medicine
DX: N83.201 Unspecified ovarian cyst, right side (principal); R93.89 Abnormal findings on diagnostic imaging of other specified body structures
CPT/HCPCS: 76830; 76856

== ENCOUNTER → 2025-06-08 15:57 | Outpatient (BNV) | payer MEDICAID, SELFPAY | PROVIDERS: PCP Registered Nurse; Visit Provider Radiology Diagnostic Ultrasound | DX: N83.01 Follicular cyst of right ovary (principal) | CPT/HCPCS: 76830; 76856 ==